=== PATIENT | female | born 1980 | race Two or more races ===

== ENCOUNTER 2018-11-23 08:24 | Emergency (ER) | payer OTHER ==
[~2018-11-23] VITALS: Ht 154.9 cm; Wt 70.3 kg
[2018-11-23 08:31] VITALS: Ht 154.9 cm; Wt 70.3 kg
[2018-11-23 09:39] VITALS: BP 128/89
== END 2018-11-23 09:39 | disposition home or self-care (01) ==
LOC: ED 08:24
DX: S90.211A Contusion of right great toe with damage to nail, initial encounter (principal); W22.8XXA Striking against or struck by other objects, initial encounter; Y93.89 Activity, other specified; Y92.89 Other specified places as the place of occurrence of the external cause; Y99.8 Other external cause status